=== PATIENT | female | born 1935 | race Caucasian/White ===

== ENCOUNTER 2020-07-21 05:38 | Day surgery (SDC) | payer MEDICARE ==
[2020-07-14 14:34] LABS: BASOPHILS % (AUTO) 0.5 % (0-1); EOSINOPHILS # (AUTO) 0.1 X10'3 (0-0.9); EOSINOPHILS % (AUTO) 1.9 % (0-6); LYMPHOCYTES # (AUTO) 1.4 X10'3 (1.1-4.8); LYMPHOCYTES % (AUTO) 20.9 % (21-51); MEAN CORPUSCULAR HEMOGLOBIN 31.9 PG (27.0-31.0); MEAN CORPUSCULAR HGB CONC 32.9 g/dL (33.0-36.5); MEAN CORPUSCULAR VOLUME 96.8 FL (78-98); MEAN PLATELET VOLUME 9.2 FL (7.4-10.4); MONOCYTES # (AUTO) 0.5 X10'3 (0-0.9); MONOCYTES % (AUTO) 7.8 % (2-12); NEUTROPHILS # (AUTO) 4.7 X10'3 (1.8-7.7); NEUTROPHILS % (AUTO) 68.9 % (42-75); PRE OP HEMATOCRIT 38.6 % (35.0-45.0); PRE OP HEMOGLOBIN 12.7 g/dL (12.0-16.0); PRE OP PLATELET COUNT 173 X10'3 (140-440); RED BLOOD COUNT 3.98 X10'6 (4.20-5.60); RED CELL DISTRIBUTION WIDTH 12.9 % (11.5-14.5)
[2020-07-14 14:47] LABS: ALBUMIN 3.4 G/DL (3.4-5.0); ALKALINE PHOSPHATASE 86 IU/L (46-116); BLOOD UREA NITROGEN 23 MG/DL (7-18); BUN/CREATININE RATIO 25.3 (6.6-38.0); CHLORIDE 102 MMOL/L (99-107); CREATININE 0.91 MG/DL (0.40-0.90); PRE OP ALT 25 U/L (30-65); PRE OP ANION GAP 6 (8-16); PRE OP AST 33 U/L (10-37); PRE OP BILIRUB, TOTAL 0.3 MG/DL (0.0-1.0); PRE OP GLUCOSE 104 MG/DL (70-104); PRE OP POTASSIUM 4.5 MMOL/L (3.4-5.1); PRE OP SODIUM 140 MMOL/L (135-145); TOTAL CARBON DIOXIDE 31.9 MMOL/L (24-32); TOTAL PROTEIN 6.7 G/DL (6.4-8.2); eGFR 59 ML/MIN
[~2020-07-21] VITALS: Ht 160 cm; Wt 74.0 kg
[~2020-07-21 05:38] MED LIST: ATOR-2 PO; BACL10TA PO; CALC600T22 PO; CLOP75TA34 PO; DULO-31 PO; EST1T PO; GABA300C PO; MULT-1085 PO; NORCO10T PO; PANT40TA39 PO; ZOLP5TAB8 PO; [UNRECOGNIZED DRUG - REMARK]; cefazolin/dext.iso 2gm/100ml IV ONE; famotidine 20mg tablet PO ONE; ringers solution, lacted 1,000 ML IV SCH
[2020-07-21 06:00] VITALS: BP 143/75
--- NOTE | 2020-07-21 06:00 | NUR ---
PT TAKES PLAVIX STOPPED 07/16 Addendum: 07/21/20 at 0749 by Carolyn Heredia RN Amended: Links added.
[2020-07-21] MEDS ORDERED: BUPIVAcaine/PF 2.5mg/ml (0.25%) 10ml vial ONE (06:39)
[2020-07-21] MEDS ORDERED: fentaNYL/PF 50MCG/1 ML 2ML syringe IV PRN ×2 (07:15)
[2020-07-21] MEDS ORDERED: morphine 2 MG/ML inj. syringe IV PRN (07:15)
[2020-07-21] MEDS ORDERED: ringers solution, lacted 1,000 ML IV SCH (07:15)
[2020-07-21] MEDS ORDERED: hydrALAZINE 20mg/ml inj. IV PRN (07:15)
[2020-07-21] MEDS ORDERED: enalaprilat dihydrate 2.5mg/2ml vial IV PRN (07:15)
[2020-07-21] MEDS ORDERED: ondansetron/PF 4mg/2ml inj IV PRN (07:15)
[2020-07-21] MEDS ORDERED: morphine 4 MG/ML inj SYRINge IV PRN (07:15)
[2020-07-21] MEDS ORDERED: LIDOcaine 0.5% (5mg/ml) 50ml vial ONE (07:16)
[2020-07-21] MEDS ORDERED: fentaNYL/PF 50MCG/1 ML 2ML syringe ONE (07:18)
[2020-07-21] MEDS ORDERED: midazolam 1 mg/ML 2ml injection ONE ×2 (07:18)
[2020-07-21] MEDS ORDERED: labetalol 20mg/4ml (5mg/ml) syringe IV ONE (07:44)
[2020-07-21 08:20] VITALS: BP 155/87
--- NOTE | 2020-07-21 08:20 | NUR ---
Received from OR via BED , accompanied by Anesthesiologist and report given by Anesthesiologist. PATIENT WAKING UP, NO S/S OF PAIN, V/S WNL, SCD ON, 20G TO RUE, LEFT WRIST DRESSING CDI W/ SLING. ICE AND ELEVATED RUE.
[2020-07-21 08:30] VITALS: BP 164/75
[2020-07-21 08:40] VITALS: BP 151/76
[2020-07-21 08:50] VITALS: BP 146/74
[2020-07-21 09:00] VITALS: BP 139/77
--- NOTE | 2020-07-21 09:00 | NUR ---
PATIENT A&OX4, DENIES PAIN, V/S WNL, SCD OFF, 20G TO RUE D/C, LEFT WRIST DRESSING CDI W/ SLING. ICE AND ELEVATED RUE. I HAVE REVIEWED D/C INSTRUCTIONS WITH PATIENT AND SHE HAS VERBALIZED UNDERSTANDING. PATIENT D/C HOME WITH ALL BELONGINGS AND FAMILY GAVE TRANSPORT.
== END 2020-07-21 09:00 | disposition home or self-care (01) ==
LOC: PAS 05:38
PROVIDERS: ATTEND Orthopaedic Surgery Hand Surgery
DX: G56.02 Carpal tunnel syndrome, left upper limb (principal); M19.071 Primary osteoarthritis, right ankle and foot; M83.9 Adult osteomalacia, unspecified; J44.9 Chronic obstructive pulmonary disease, unspecified; Z79.899 Other long term (current) drug therapy; Z90.710 Acquired absence of both cervix and uterus; Z98.41 Cataract extraction status, right eye; Z98.42 Cataract extraction status, left eye; Z98.890 Other specified postprocedural states; Z72.89 Other problems related to lifestyle
CPT/HCPCS: 36415; 64721; 80053; 82948; 85025; J2001; J2250; J3010; J3490; A4215; J7120

== ENCOUNTER 2020-09-11 06:10 | Day surgery (SDC) | payer MEDICARE ==
[2020-09-05 12:06] LABS: BASOPHILS % (AUTO) 0.7 % (0-1); EOSINOPHILS # (AUTO) 0.1 X10'3 (0-0.9); EOSINOPHILS % (AUTO) 1.5 % (0-6); LYMPHOCYTES # (AUTO) 1.2 X10'3 (1.1-4.8); LYMPHOCYTES % (AUTO) 19.6 % (21-51); MEAN CORPUSCULAR HEMOGLOBIN 32.1 PG (27.0-31.0); MEAN CORPUSCULAR HGB CONC 33.4 g/dL (33.0-36.5); MEAN CORPUSCULAR VOLUME 95.9 FL (78-98); MEAN PLATELET VOLUME 8.9 FL (7.4-10.4); MONOCYTES # (AUTO) 0.6 X10'3 (0-0.9); NEUTROPHILS # (AUTO) 4.4 X10'3 (1.8-7.7); NEUTROPHILS % (AUTO) 69.2 % (42-75); PRE OP HEMATOCRIT 37.1 % (35.0-45.0); PRE OP HEMOGLOBIN 12.4 g/dL (12.0-16.0); PRE OP PLATELET COUNT 180 X10'3 (140-440); RED BLOOD COUNT 3.87 X10'6 (4.20-5.60); RED CELL DISTRIBUTION WIDTH 13.1 % (11.5-14.5)
[2020-09-05 12:27] LABS: ALBUMIN 3.4 G/DL (3.4-5.0); ALKALINE PHOSPHATASE 80 IU/L (46-116); BLOOD UREA NITROGEN 16 MG/DL (7-18); BUN/CREATININE RATIO 22.9 (6.6-38.0); CHLORIDE 103 MMOL/L (99-107); PRE OP ALT 28 U/L (30-65); PRE OP ANION GAP 5 (8-16); PRE OP AST 27 U/L (10-37); PRE OP BILIRUB, TOTAL 0.4 MG/DL (0.0-1.0); PRE OP GLUCOSE 83 MG/DL (70-104); PRE OP POTASSIUM 4.4 MMOL/L (3.4-5.1); PRE OP SODIUM 139 MMOL/L (135-145); TOTAL PROTEIN 6.8 G/DL (6.4-8.2); eGFR 80 ML/MIN
[2020-09-11] VITALS (7 sets, daily range): BP systolic 153–183; BP diastolic 79–99
[~2020-09-11] VITALS: Ht 160 cm; Wt 72.1 kg
[2020-09-11] MEDS ORDERED: LIDOcaine 1% 30ml preserv. free vial ONE (07:17)
[2020-09-11] MEDS ORDERED: midazolam 1 mg/ML 2ml injection ONE (07:45)
[2020-09-11] MEDS ORDERED: ketorolac trometh. 30mg/ml inj. ONE (07:45)
[2020-09-11] MEDS ORDERED: 0.9 % SODIUM CHLORIDE 10 ML VIAL ONE (07:46)
[2020-09-11] MEDS ORDERED: BUPIVAcaine/PF 2.5mg/ml (0.25%) 10ml vial IJ ONE (08:10)
== END 2020-09-11 09:20 | disposition home or self-care (01) ==
LOC: PAS 06:10
PROVIDERS: ATTEND Orthopaedic Surgery Hand Surgery
DX: G56.01 Carpal tunnel syndrome, right upper limb (principal); G89.29 Other chronic pain; I10 Essential (primary) hypertension; K21.9 Gastro-esophageal reflux disease without esophagitis; G62.9 Polyneuropathy, unspecified; M19.071 Primary osteoarthritis, right ankle and foot; Z86.73 Personal history of transient ischemic attack (TIA), and cerebral infarction without residual deficits; Z98.890 Other specified postprocedural states; Z96.651 Presence of right artificial knee joint; Z79.01 Long term (current) use of anticoagulants; Z79.899 Other long term (current) drug therapy; Z90.710 Acquired absence of both cervix and uterus; Z98.41 Cataract extraction status, right eye; Z98.42 Cataract extraction status, left eye; Z72.89 Other problems related to lifestyle
CPT/HCPCS: 36415; 64721; 80053; 82948; 85025; 93005; A6222; J1885; J2001; J2250; J3490; A4215; J7120